=== PATIENT | female | born 1945 | race Caucasian/White ===

== ENCOUNTER 2021-03-17 09:10 | Inpatient (IN) | payer OTHER ==
[2021-03-17 09:21] VITALS: BMI 27.3
[2021-03-17] MEDS ORDERED: ASPIRIN 81 MG CHEWABLE TABLETS PO ONE (09:59)
[2021-03-17] MEDS ORDERED: ASPIRIN 81 MG CHEWABLE TABLETS ONE (10:13)
[2021-03-17 10:20] LABS: BASO % 0.7 % (0-2.0); EOS % 0.8 % (0-4.5); HEMATOCRIT 43.4 % (32.4-45.2); LYMPH % 35.7 % (8-40); MCH 27.1 pg (25.7-33.7); MCHC 32.3 g/dl (32.0-36.0); MEAN CELL VOLUME 83.8 fl (80-96); MEAN PLT VOLUME 7.8 fl (7.5-11.1); MONO % 4.7 % (3.8-10.2); NEUT % 58.1 % (42.8-82.8); PLATELET COUNT 256 10^3/uL (134-434); RBC 5.18 M/mm3 (3.60-5.2); RDW 15.5 % (11.6-15.6); WHITE BLOOD COUNT 5.5 K/mm3 (4.0-10.0)
[2021-03-17 10:36] LABS: INR 0.93 (0.83-1.09); PROTHROMBIN TIME (PATIENT) 10.7 SEC (9.7-13.0)
[2021-03-17 10:39] LABS: ACTIVATED PTT 27.4 SECONDS (25.2-36.5)
[2021-03-17 10:58] LABS: ALBUMIN 3.9 g/dl (3.4-5.0); BLOOD UREA NITROGEN 27.3 mg/dL (7-18); CALCIUM 9.5 mg/dL (8.5-10.1); MAGNESIUM 1.6 mg/dL (1.8-2.4)
[2021-03-17 11:00] LABS: CREATININE 1.1 mg/dL (0.55-1.3)
[2021-03-17 11:02] LABS: BILIRUBIN,TOTAL 0.4 mg/dL (0.2-1); TOT PROT 7.2 g/dl (6.4-8.2)
[2021-03-17] MEDS ORDERED: MAGNESIUM 1GM/D5W - 1 GM/100 ML IVPB IVPB ONE (11:27)
[2021-03-17] MEDS ORDERED: MAG HYDROX/AL HYDROX/SIMETH 30 ML UNIT-DOSE CUP PO ONE (15:34)
[2021-03-17] MEDS ORDERED: FAMOTIDINE 20 MG/50 ML IVPB 20 MG/50 ML MG IVPB ONE ×2 (15:34→15:51)
[2021-03-17] MEDS ORDERED: ONDANSETRON 4 MG/2 ML VIAL IVPUSH ONE (15:34)
[2021-03-17] MEDS ORDERED: MAG HYDROX/AL HYDROX/SIMETH 30 ML UNIT-DOSE CUP ONE (15:46)
[2021-03-17] MEDS ORDERED: ONDANSETRON 4 MG/2 ML VIAL ONE (15:46)
[2021-03-17] MEDS ORDERED: ALBUTEROL SO4 HFA INHALER IH PRN (15:47)
[2021-03-17] MEDS: PANTOPRAZOLE SODIUM 40 MG VIAL IVPUSH SCH (17:00)
[2021-03-17] MEDS ORDERED: PANTOPRAZOLE SODIUM 40 MG VIAL ONE (17:43)
[2021-03-17] MEDS ORDERED: HEPARIN NA (PORCINE) 5,000 UNITS/ML 1ML VIAL ONE (22:09)
[2021-03-17] MEDS: ROSUVASTATIN CA 20 MG TABLET PO SCH (22:33)
[2021-03-17] MEDS: RANOLAZINE E.R. 500 MG TABLET (FP) PO SCH (22:33)
[2021-03-17] MEDS: HEPARIN NA (PORCINE) 5,000 UNITS/ML 1ML VIAL SQ SCH (22:34)
[2021-03-18] MEDS ORDERED: NITROGLYCERIN 2% OINTMENT - 1GM PACKET TD ONE ×2 (01:04→06:08)
[2021-03-18] MEDS: NITROGLYCERIN 2% OINTMENT - 1GM PACKET TD SCH ×3 (01:11→14:56)
[2021-03-18 08:13] LABS: CALCIUM 9.2 mg/dL (8.5-10.1)
[2021-03-18 08:14] LABS: ALBUMIN 3.4 g/dl (3.4-5.0); BLOOD UREA NITROGEN 21.9 mg/dL (7-18)
[2021-03-18 08:15] LABS: BILIRUBIN,TOTAL 0.4 mg/dL (0.2-1); TOT PROT 6.3 g/dl (6.4-8.2)
[2021-03-18 08:23] LABS: BASO % 0.7 % (0-2.0); EOS % 0.9 % (0-4.5); HEMATOCRIT 39.3 % (32.4-45.2); LYMPH % 40.1 % (8-40); MCH 27.5 pg (25.7-33.7); MCHC 33.1 g/dl (32.0-36.0); MEAN CELL VOLUME 83.3 fl (80-96); MEAN PLT VOLUME 7.4 fl (7.5-11.1); MONO % 8.4 % (3.8-10.2); NEUT % 49.9 % (42.8-82.8); PLATELET COUNT 211 10^3/uL (134-434); RBC 4.72 M/mm3 (3.60-5.2); RDW 15.7 % (11.6-15.6); WHITE BLOOD COUNT 4.8 K/mm3 (4.0-10.0)
[2021-03-18] MEDS ORDERED: CLOPIDOGREL BISULFATE 75 MG TABLET (FP) ONE (09:25)
[2021-03-18] MEDS ORDERED: amLODIPine BESYLATE 5 MG TABLET (FP) ONE (09:25)
[2021-03-18] MEDS ORDERED: ASPIRIN 81 MG CHEWABLE TABLETS ONE (09:25)
[2021-03-18] MEDS ORDERED: HEPARIN NA (PORCINE) 5,000 UNITS/ML 1ML VIAL ONE (09:26)
[2021-03-18] MEDS ORDERED: PANTOPRAZOLE SODIUM 40 MG/100 ML BAG IVPB ONE (09:28)
[2021-03-18] MEDS: HEPARIN NA (PORCINE) 5,000 UNITS/ML 1ML VIAL SQ SCH ×2 (09:55→21:20)
[2021-03-18] MEDS: ASPIRIN 81 MG CHEWABLE TABLETS PO SCH (09:55)
[2021-03-18] MEDS: amLODIPine BESYLATE 5 MG TABLET (FP) PO SCH (09:55)
[2021-03-18] MEDS: CLOPIDOGREL BISULFATE 75 MG TABLET (FP) PO SCH (09:56)
[2021-03-18] MEDS: PANTOPRAZOLE SODIUM 40 MG VIAL IVPUSH SCH (09:56)
[2021-03-18] MEDS: RANOLAZINE E.R. 500 MG TABLET (FP) PO SCH ×2 (09:56→21:20)
[2021-03-18] MEDS: FENOFIBRIC ACID 135 MG CAP PO SCH (09:57)
[2021-03-18] MEDS ORDERED: ISOSORBIDE MONONITRATE 30 MG TAB.SR.24H (FP) PO SCH (10:00)
[2021-03-18] MEDS: TIOTROPIUM BROMIDE 2.5 MCG (SPIRIVA) RESPIMAT INHALER IH SCH (15:00)
[2021-03-18] MEDS: ROSUVASTATIN CA 20 MG TABLET PO SCH (21:20)
[2021-03-19] MEDS ORDERED: REGADENOSON 0.4 MG/5 ML PRE-FILLED SYRINGE IVPUSH ONE ×2 (09:53→10:45)
[2021-03-19] MEDS: ASPIRIN 81 MG CHEWABLE TABLETS PO SCH ×2 (10:16→18:35)
[2021-03-19] MEDS: HEPARIN NA (PORCINE) 5,000 UNITS/ML 1ML VIAL SQ SCH ×2 (10:16→22:29)
[2021-03-19] MEDS: TIOTROPIUM BROMIDE 2.5 MCG (SPIRIVA) RESPIMAT INHALER IH SCH (10:17)
[2021-03-19] MEDS: RANOLAZINE E.R. 500 MG TABLET (FP) PO SCH ×2 (10:17→22:29)
[2021-03-19] MEDS: amLODIPine BESYLATE 5 MG TABLET (FP) PO SCH ×2 (10:17→18:35)
[2021-03-19] MEDS: PANTOPRAZOLE SODIUM 40 MG VIAL IVPUSH SCH ×2 (10:17→18:35)
[2021-03-19] MEDS: FENOFIBRIC ACID 135 MG CAP PO SCH ×2 (10:17→18:34)
[2021-03-19] MEDS: VALSARTAN 80 MG TABLET PO SCH ×2 (10:18→18:35)
[2021-03-19] MEDS: ROSUVASTATIN CA 20 MG TABLET PO SCH (22:29)
[2021-03-20] MEDS: amLODIPine BESYLATE 5 MG TABLET (FP) PO SCH (09:08)
[2021-03-20] MEDS: FENOFIBRIC ACID 135 MG CAP PO SCH (09:08)
[2021-03-20] MEDS: ASPIRIN 81 MG CHEWABLE TABLETS PO SCH (09:08)
[2021-03-20] MEDS: HEPARIN NA (PORCINE) 5,000 UNITS/ML 1ML VIAL SQ SCH (09:08)
[2021-03-20] MEDS: RANOLAZINE E.R. 500 MG TABLET (FP) PO SCH (09:08)
[2021-03-20] MEDS: CLOPIDOGREL BISULFATE 75 MG TABLET (FP) PO SCH (09:08)
[2021-03-20] MEDS: VALSARTAN 80 MG TABLET PO SCH (09:10)
[2021-03-20] MEDS: PANTOPRAZOLE SODIUM 40 MG VIAL IVPUSH SCH (09:10)
[2021-03-20] MEDS: TIOTROPIUM BROMIDE 2.5 MCG (SPIRIVA) RESPIMAT INHALER IH SCH (09:16)
[2021-03-20 15:05] VITALS: BP 125/83; PULSE 64; TEMP 97.9
[2021-03-21] MEDS ORDERED: CLOPIDOGREL BISULFATE 75 MG TABLET (FP) PO SCH (10:00)
== END 2021-03-20 19:46 | disposition home or self-care (01) | DRG 445 ==
LOC: JER 09:10 → JERBED 10:34 → J4W 03-18 18:38
PROVIDERS: ADMIT Family Medicine; ATTEND Family Medicine
DX: K83.8 Other specified diseases of biliary tract (principal); I50.32 Chronic diastolic (congestive) heart failure; I13.0 Hypertensive heart and chronic kidney disease with heart failure and stage 1 through stage 4 chronic kidney disease, or unspecified chronic kidney disease; I42.9 Cardiomyopathy, unspecified; I25.10 Atherosclerotic heart disease of native coronary artery without angina pectoris; E78.5 Hyperlipidemia, unspecified; E83.42 Hypomagnesemia; R07.2 Precordial pain; Z95.5 Presence of coronary angioplasty implant and graft; R16.0 Hepatomegaly, not elsewhere classified; E11.22 Type 2 diabetes mellitus with diabetic chronic kidney disease; N18.9 Chronic kidney disease, unspecified; J44.9 Chronic obstructive pulmonary disease, unspecified; E78.2 Mixed hyperlipidemia
CPT/HCPCS: 36415; 71046-TC-FY; 74178-TC; 74181-TC; 76705-TC; 78452-TC; 80053; 80061; 82550; 83690; 83735; 84443; 84484; 85025; 85610; 85730; 93005; 93010; 93017; 99285-25; A9502; C9803; J1644; J2785; U0003; U0005